=== PATIENT | male | born 1985 | race Caucasian/White ===

== ENCOUNTER 2018-10-21 23:29 | Emergency (ER) | payer MEDICAID ==
[~2018-10-21] VITALS: Ht 177.8 cm; Wt 117.9 kg
--- NOTE | 2018-10-21 23:30 | NUR ---
33 Y/O MALE BIB [facility]. PRESENTS TO ED, C/O ACHING, PRESSURED ABDOMINAL PAIN THAT RADIATES TO THE BACK 10/23. 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 PT DENIES CONSTIPATION. ACTIVE BOWEL SOUNDS ON ALL QUADRANTS. ABD SOFT, NO PAIN ON PALPATION. NO PAIN VOIDING. PT HAS NO MEDICAL HX. ERMD AWARE. WILL CONTINUE TO MONITOR.
--- NOTE | 2018-10-21 23:30 | NUR ---
[facility] TRANSFERRED PT VIA GURNEY TO BED #9
[2018-10-21 23:36] VITALS: BP 168/92
[2018-10-21] MEDS ORDERED: KETOROLAC 30 MG/ML VIAL IM ONE (23:50)
[2018-10-22 00:07] LABS: BASOPHILS # (AUTO) 0.1 K/uL (0.00-0.22); BASOPHILS % (AUTO) 0.8 % (0.0-2.0); EOSINOPHILS # (AUTO) 0.1 K/uL (0-0.4); EOSINOPHILS % (AUTO) 1.5 % (0.0-4.0); HEMATOCRIT 44.5 % (36-52); HEMOGLOBIN 14.9 g/dL (12.0-18.0); LYMPHOCYTES # (AUTO) 1.9 K/uL (2.0-11.5); LYMPHOCYTES % (AUTO) 22.3 % (20.5-51.1); MEAN CORPUSCULAR HEMOGLOBIN 29 pg (27-31); MEAN CORPUSCULAR HGB CONC 34 g/dL (33-37); MEAN CORPUSCULAR VOLUME 86.4 fL (80-94); MONOCYTES # (AUTO) 0.6 K/uL (0.8-1.0); MONOCYTES % (AUTO) 6.7 % (1.7-9.3); NEUTROPHILS % (AUTO) 68.7 % (42.2-75.2); PLATELET COUNT (AUTO) 302 K/uL (140-450); RED BLOOD CELL COUNT(AUTO) 5.15 MIL/uL (4.20-6.10); RED CELL DISTRIBUTION WIDTH 13.6 % (11.6-13.7); WHITE BLOOD COUNT (AUTO) 8.7 K/uL (4.8-10.8)
--- NOTE | 2018-10-22 00:14 | NUR ---
PT TAKEN TO CT
[2018-10-22 00:19] LABS: ANION GAP 12.7 (8-16); CARBON DIOXIDE 26.9 mmol/L (21-32); CREATININE 0.8 mg/dL (0.7-1.3); POTASSIUM 3.6 mmol/L (3.5-5.1)
[2018-10-22 00:24] LABS: ALBUMIN 3.7 g/dL (3.4-5.0)
[2018-10-22] MEDS ORDERED: ONDANSETRON 4 MG ODT PO ONE (01:00)
[2018-10-22 01:22] VITALS: BP 155/89
--- NOTE | 2018-10-22 01:22 | NUR ---
PT DISCHARGE WITH PAPERWORK. RX ZOFRAN AND MOTRIN. EDUCATED PT REGARDING MEDICATIONS AND SIDE EFFECTS. EDUCATED PT REGARDING DISCHARGE DIAGNOSIS. PT VERBALIZED UNDERSTANDING OF TEACHING. TOLD PT TO FOLLOW UP WITH PCP AND WHEN TO RETURN TO ED. PT VSS. ALL QUESTIONS ANSWERED.
== END 2018-10-22 01:22 | disposition home or self-care (01) ==
LOC: MED 23:29
DX: K80.20 Calculus of gallbladder without cholecystitis without obstruction (principal)
CPT/HCPCS: 36415; 74176; 80053; 83690; 85025; 96372; 99284; J1885; Q0162

== ENCOUNTER 2018-10-24 14:12 | Inpatient (IN) | payer MEDICAID ==
[~2018-10-24] VITALS: Ht 177.8 cm; Wt 113.4 kg
[2018-10-24 14:14] VITALS: BP 99/59
--- NOTE | 2018-10-24 14:25 | NUR ---
PT AMB TO BED 11
[2018-10-24] MEDS ORDERED: NACL 0.9% 2,000 ML IV ONE (14:40)
[2018-10-24] MEDS ORDERED: MAGNESIUM CITRATE 300 ML BTL PO ONE (14:40)
--- NOTE | 2018-10-24 14:43 | NUR ---
33 Y/M C/O N/V, GENERALIZED ABDOMINAL PAIN & CONSTIPATED X 5 DAYS. SEEN HERE 10/22/18 LAST BM 10/20/18. PT REPORTED HIS URINE IS DARK AND TEA LIKE COLOR. DENIES DYSURIA. SCLERA IS YELLOW. MED HX: GALL STONE
[2018-10-24 15:05] LABS: BASOPHILS % (AUTO) 0.6 % (0.0-2.0); EOSINOPHILS # (AUTO) 0.2 K/uL (0-0.4); EOSINOPHILS % (AUTO) 2.6 % (0.0-4.0); HEMATOCRIT 44.8 % (36-52); HEMOGLOBIN 15.1 g/dL (12.0-18.0); LYMPHOCYTES # (AUTO) 1.2 K/uL (2.0-11.5); LYMPHOCYTES % (AUTO) 15.3 % (20.5-51.1); MEAN CORPUSCULAR HEMOGLOBIN 29 pg (27-31); MEAN CORPUSCULAR HGB CONC 34 g/dL (33-37); MEAN CORPUSCULAR VOLUME 86.2 fL (80-94); MONOCYTES # (AUTO) 0.6 K/uL (0.8-1.0); MONOCYTES % (AUTO) 8.2 % (1.7-9.3); NEUTROPHILS # (AUTO) 5.7 K/uL (1.8-7.7); NEUTROPHILS % (AUTO) 73.3 % (42.2-75.2); PLATELET COUNT (AUTO) 290 K/uL (140-450); RED CELL DISTRIBUTION WIDTH 13.7 % (11.6-13.7); WHITE BLOOD COUNT (AUTO) 7.8 K/uL (4.8-10.8)
--- NOTE | 2018-10-24 15:08 | NUR ---
bedside ultrasound completed
[2018-10-24 15:10] LABS: APPEARANCE,URINE HAZY (CLEAR); BILIRUBIN,URINE 3+ (NEGATIVE); BLOOD, URINE NEGATIVE (NEGATIVE); COLOR,URINE BROWN (YELLOW); LEUKOCYTE ESTERASE ,URINE NEGATIVE (NEGATIVE); NITRITE, URINE POSITIVE (NEGATIVE); UGLUCOSE NEGATIVE (NEGATIVE)
[2018-10-24 15:17] LABS: ANION GAP 9.1 (8-16); CARBON DIOXIDE 31.9 mmol/L (21-32); CREATININE 0.9 mg/dL (0.7-1.3)
[2018-10-24 15:25] LABS: ALBUMIN 3.6 g/dL (3.4-5.0); TOTAL BILIRUBIN 6.4 mg/dL (0.0-1.0)
[2018-10-24] MEDS ORDERED: LACTULOSE 20 GM/30 ML UDC PO ONE (15:30)
[2018-10-24 15:35] LABS: RBC,URINE 0 /HPF (0-5); WBC,URINE 0-5 /HPF (0-5)
[2018-10-24] MEDS ORDERED: cefTRIAXone 1,000 MG VIAL ONE (15:45)
[2018-10-24] MEDS: DEXT 5% /NACL 0.9% 1,000 ML IV SCH (16:11)
[2018-10-24] MEDS ORDERED: LORazepam 2 MG/ML VIAL IM/IVP PRN (16:15)
[2018-10-24] MEDS ORDERED: ONDANSETRON 4 MG/2 ML VIAL IM/IVP PRN (16:15)
[2018-10-24] MEDS ORDERED: DOCUSATE SODIUM 100 MG GELCAP PO PRN (16:15)
[2018-10-24] MEDS ORDERED: MORPHINE SULFATE 2 MG/ML SYR IVP PRN (16:15)
[2018-10-24] MEDS ORDERED: HYDROcodone/APAP 5/325 MG 1 TAB TAB PO PRN (16:15)
--- NOTE | 2018-10-24 16:24 | NUR ---
X RAY AT BEDSIDE.
[2018-10-24 16:48] LABS: PROTHROMBIN TIME 9.6 secs (10.8-13.4)
[2018-10-24 16:49] LABS: BARBITURATE, URINE NEG. ng/ml (NEG <=200); BENZODIAZEPINE, URINE NEG. ng/mL (NEG <=200); CANNABINOID, URINE POS. ng/mL (NEG <=50); COCAINE, URINE NEG. ng/mL (NEG <=300); OPIATE, URINE NEG. ng/mL (NEG <=2000); PHENCYCLIDINE SCREEN,URINE NEG. ng/mL (NEG <=25)
[2018-10-24 17:00] LABS: MAGNESIUM 2.1 mg/dL (1.8-2.4); PHOSPHORUS 3.1 mg/dL (2.5-4.9); THYROID STIMULATING HORMONE 1.95 uIU/mL (0.34-3.74)
--- NOTE | 2018-10-24 17:00 | NUR ---
RECEIVED REPORT FROM ER NURSE JENNIFER. PATIENT CAME TO UNIT FEELING NAUSEOUS AND VOMITED X1. MADE AWARE. PATIENT IS ON ROOM AIR. IV TO RIGHT AC 18G WITH NORMAL SALINE INFUSING. PATIENT IS CURRENTLY NPO EXCEPT MEDS. A&O X4. IS AT BEDSIDE. WILL REVIEW MEDICATION LIST AND ADMINSTER NEEDED. ADMIT VITAL SIGNS: BP 164/100, 98% RA, 79 NM, 98.2 T.
--- NOTE | 2018-10-24 17:03 | NUR ---
Note keena in ED - 10/24/18 at 1704 by MARIA ESTHER Patient will be admitted to care of [facility]. Admited to Med/Surg. Will go to room 125 B. Belongings list completed. Report to .
--- NOTE | 2018-10-24 17:04 | NUR ---
Patient will be admitted to care of [facility]. Admited to Med/Surg. Will go to room 125 B. Belongings list completed. Report to RAHEEL BOSTON.
--- NOTE | 2018-10-24 17:25 | NUR ---
ENDORSED PATIENT TO ELECTRICAL AND INSTRUMENTATION MANAGER NURSE. LATEST VITAL SIGNS WNL. PATIENT IS AWAKE AND ALERT AND IS AT BEDSIDE
[2018-10-24] MEDS ORDERED: BISACODYL 10 MG SUPP RC ONE (17:50)
[2018-10-24] MEDS ORDERED: LIDOCAINE VISCOUS 2% 20 ML UDC PO ONE (18:15)
[2018-10-24] MEDS ORDERED: ALUMINUM HYD/MAG/SIMETHICONE 30 ML UDC PO ONE (18:15)
[2018-10-24] MEDS ORDERED: DICYCLOMINE HCL LIQUID 10 MG/5 ML UDC PO ONE (18:15)
[2018-10-24 18:24] LABS: ALBUMIN 3.6 g/dL (3.4-5.0); BILIRUBIN,DIRECT 4.7 mg/dL (0.0-0.3); TOTAL BILIRUBIN 6.5 mg/dL (0.0-1.0)
[2018-10-24] MEDS: PANTOPRAZOLE 40 MG INJ VIAL IVP SCH (18:36)
[2018-10-24] MEDS ORDERED: MORPHINE SULFATE 2 MG/ML SYR ONE (18:45)
[2018-10-24] MEDS ORDERED: ONDANSETRON 4 MG/2 ML VIAL ONE (18:45)
[2018-10-24] MEDS: LISINOPRIL 5 MG TAB PO SCH (18:48)
--- NOTE | 2018-10-24 19:26 | NUR ---
RECEIVED BEDSIDE REPORT FROM VIDAL PICKERING. A/O X4 PERSON PLACE TIME AND EVENT. DISCUSSED PLAN OF CARE. VERBALIZED UNDERSTANDING. MAKES NEEDS KNOWN. ROOM AIR. NO SIGNS OF RESP DISTRESS. STD PRECAUTIONS. AMBULATORY. STEADY GAIT. SKIN IS INTACT. RAC 18G. PATENT AND INTACT. BED IN LOWEST POSITION. CALL LIGHT WITHIN REACH. WILL CONTINUE TO MONITOR. FAMILY AT BEDSIDE.
[2018-10-24] MEDS: DOCUSATE SODIUM 100 MG GELCAP PO SCH (21:00)
[2018-10-24] MEDS ORDERED: SODIUM PHOSPHATE 118 ML ENEM RC ONE (21:00)
--- NOTE | 2018-10-24 21:00 | NUR ---
PT REFUSED 2100 SCHEDULED MEDS BOO AND NICOLE LINDO. STATES HE IS CONSTANTLY IN THE RESTROOM SINCE SHIFT CHANGE. SAYS HE WILL ASK FOR IT LATER IF HE NEEDS IT. WILL CONTINUE TO MONITOR.
[2018-10-24] MEDS: METOPROLOL 25 MG TAB PO SCH (21:43)
[2018-10-24] MEDS ORDERED: HYDROcodone/APAP 5/325 MG 1 TAB TAB ONE (22:01)
--- NOTE | 2018-10-24 22:57 | NUR ---
PT RESTING IN BED NO SIGNS OF DISTRESS. EVEN UNLABORED BREATHING. WILL CONTINUE TO MONITOR. CALL LIGHT WITHIN REACH.
[2018-10-25] VITALS: BP 145/88
--- NOTE | 2018-10-25 01:46 | NUR ---
PT IS SLEEPING IN BED NO SIGNS OF RESP DISTRESS. EASILY AROUSABLE. EVEN UNLABORED CHEST RISE. CALL LIGHT WITHIN REACH. WILL CONTINUE TO MONITOR.
--- NOTE | 2018-10-25 03:45 | NUR ---
PT IS SLEEPING WITH NO SIGNS OF DISTRESS. AMBULATED TO BATHROOM WITH STEADY GAIT. BACK IN BED. ABLE TO MAKE NEEDS KNOWN. CALL LIGHT WITHIN REACH.
[2018-10-25] MEDS: DEXT 5% /NACL 0.9% 1,000 ML IV SCH ×3 (04:56→21:43)
--- NOTE | 2018-10-25 05:10 | NUR ---
STILL AT BEDSIDE. NO SIGNS OF DISTRESS. CALL LIGHT WITHIN REACH. WILL CONTINUE TO MONITOR.
--- NOTE | 2018-10-25 06:23 | NUR ---
WILL ENDORSE PT TO DAYSHIFT RN FOR CONTINUITY OF CARE. PT IS IN STABLE CONDITION. BED IN LOWEST POSITION. CALL LIGHT WITHIN REACH. NO SIGNS OF DISTRESS.
--- NOTE | 2018-10-25 06:47 | NUR ---
X RAY AT BEDSIDE.
[2018-10-25 07:19] LABS: BASOPHILS % (AUTO) 0.6 % (0.0-2.0); EOSINOPHILS # (AUTO) 0.3 K/uL (0-0.4); EOSINOPHILS % (AUTO) 3.6 % (0.0-4.0); HEMATOCRIT 40.9 % (36-52); LYMPHOCYTES # (AUTO) 1.9 K/uL (2.0-11.5); LYMPHOCYTES % (AUTO) 25.1 % (20.5-51.1); MEAN CORPUSCULAR HEMOGLOBIN 29 pg (27-31); MEAN CORPUSCULAR HGB CONC 34 g/dL (33-37); MEAN CORPUSCULAR VOLUME 86.3 fL (80-94); MONOCYTES # (AUTO) 0.7 K/uL (0.8-1.0); MONOCYTES % (AUTO) 8.9 % (1.7-9.3); NEUTROPHILS # (AUTO) 4.7 K/uL (1.8-7.7); NEUTROPHILS % (AUTO) 61.8 % (42.2-75.2); PLATELET COUNT (AUTO) 294 K/uL (140-450); RED BLOOD CELL COUNT(AUTO) 4.74 MIL/uL (4.20-6.10); RED CELL DISTRIBUTION WIDTH 13.8 % (11.6-13.7); WHITE BLOOD COUNT (AUTO) 7.6 K/uL (4.8-10.8)
--- NOTE | 2018-10-25 07:28 | NUR ---
RECEIVED REPORT FROM JOURNEYMAN OPERATOR ASSISTANT RN FOR CONTINUITY OF CARE. PT IN STABLE CONDITION AT THIS TIME.
[2018-10-25 07:40] LABS: ANION GAP 13.2 (8-16); CARBON DIOXIDE 26.3 mmol/L (21-32); CREATININE 0.8 mg/dL (0.7-1.3); POTASSIUM 3.5 mmol/L (3.5-5.1)
--- NOTE | 2018-10-25 07:53 | NUR ---
PATIENT HAS BEEN SCREENED AND CATEGORIZED HIGH NUTRITION RISK. PATIENT WILL BE SEEN WITHIN 1-2 DAYS OF ADMISSION. 10/25/18-10/26/[address]
[2018-10-25 08:00] VITALS: BP 138/87
[2018-10-25] MEDS: chlordiazePOXIDE 25 MG CAP PO SCH ×3 (09:00→17:00)
--- NOTE | 2018-10-25 09:48 | NUR ---
ADMINISTERED MORNING MEDS TO PT. PT TOLERATED THEM WELL. WILL CONTINUE TO ROUND FREQUENTLY ON PT. BED IN LOW POSITION, CALL LIGHT WITHIN REACH.
[2018-10-25] MEDS: PANTOPRAZOLE 40 MG INJ VIAL IVP SCH (10:30)
[2018-10-25] MEDS: LACTULOSE 20 GM/30 ML UDC PO SCH (10:31)
[2018-10-25] MEDS: METOPROLOL 25 MG TAB PO SCH ×2 (10:31→21:15)
[2018-10-25] MEDS: LISINOPRIL 5 MG TAB PO SCH (10:32)
[2018-10-25] MEDS: THIAMINE 200 MG/2 ML VIAL IM SCH (10:32)
[2018-10-25] MEDS: MULTIVITAMIN 1 TAB PO SCH (10:32)
[2018-10-25] MEDS: DOCUSATE SODIUM 100 MG GELCAP PO SCH ×2 (10:32→21:14)
[2018-10-25] MEDS: FOLIC ACID 1 MG TAB PO SCH (10:33)
--- NOTE | 2018-10-25 11:29 | NUR ---
PT RESTING IN BED. PAIN REPORTED AND WILL MEDICATE. ALL OTHER NEEDS MET AT THIS TIME.
--- NOTE | 2018-10-25 13:39 | NUR ---
PT SLEEPING IN BED WITH AT BEDSIDE. ALL NEEDS CURRENTLY MET. WILL CONTINUE TO ROUND FREQUENTLY ON PT
[2018-10-25] MEDS: SENNA 8.6 MG TAB PO SCH ×2 (14:42→17:00)
--- NOTE | 2018-10-25 15:47 | NUR ---
PT SLEEPING IN BED. WILL CONTINUE TO ROUND FREQUENTLY ON PT. BED IN LOW POSITION, CALL LIGHT WITHIN REACH
[2018-10-25 16:00] VITALS: BP 127/81
--- NOTE | 2018-10-25 17:40 | NUR ---
PATIENT RESTING IN BED EATING DINNER. ALL NEEDS CURRENTLY MET. WILL CONTINUE TO ROUND FREQUENTLY ON PT.
--- NOTE | 2018-10-25 19:51 | NUR ---
RECIEVED PT AAOX4, NID , IV SITE INTACT AND PATENT , COMPLAINING OF ACID REFLUX , PLAN OF CARE DISCUSSED AND VERBALIZE UNDERSTANDING , RELATIVE AT BEDSIDE , CALL LIGHT WITHIN REACH . WILL REFER TO DR. BRIGGS FOR ACID REFLUX AND WILL MEDICATE AND WILL CONT. TO MONITOR.
--- NOTE | 2018-10-25 19:51 | NUR ---
ENDORSED PT TO COUPON COLLECTION CLERK FOR CONTINUITY OF CARE. PT IN STABLE CONDITION AT THIS TIME.
[2018-10-25] MEDS ORDERED: FAMOTIDINE 20 MG/2 ML VIAL IV SCH (21:00)
[2018-10-25] MEDS ORDERED: DICYCLOMINE HCL LIQUID 10 MG/5 ML UDC PO SCH (21:00)
[2018-10-25] MEDS ORDERED: LIDOCAINE VISCOUS 2% 20 ML UDC PO SCH (21:00)
[2018-10-25] MEDS ORDERED: ALUMINUM HYD/MAG/SIMETHICONE 30 ML UDC PO SCH (21:00)
[2018-10-25] MEDS ORDERED: ACETAMINOPHEN 325 MG TAB ONE (21:20)
--- NOTE | 2018-10-25 21:30 | NUR ---
REFER TO DR BRIGGS - MADE NEW ORDER AND CARRIED OUT. WILL CONT. TO MONITOR . CALL LIGHT WITHIN REACH.
[2018-10-25] MEDS: ACETAMINOPHEN 325 MG TAB PO PRN ×2 (21:35→21:37)
--- NOTE | 2018-10-25 21:48 | NUR ---
ON REGULAR DIET ORDERED.
--- NOTE | 2018-10-25 22:30 | NUR ---
I BROUGHT SANDWICH TO THE PT. BUT PT. AND PT'S RELATIVE SLEEPING.CALL LIGHT WITHIN REACH.
--- NOTE | 2018-10-26 | NUR ---
MADE ROUNDS . PT RESP. EVEN AND UNLABORED . CALL LIGHT WITHIN REACH.WILL CONT. TO MONITOR.
[2018-10-26 00:17] VITALS: BP 133/80
--- NOTE | 2018-10-26 02:00 | NUR ---
SLEEPING.CALL LIGHT WITHIN REACH
--- NOTE | 2018-10-26 04:00 | NUR ---
MADE ROUNDS . RESP. EVEN AND UNLABORED , CALL LIGHT WITHIN REACH.
--- NOTE | 2018-10-26 06:00 | NUR ---
PHARMACIST FROM [facility] CALLED TO VERIFY THE ORDER OF DR. BRIGGS ABOUT WHICH ONE BET. THE FAMOTIDINE AND PANTOPRAZOL . VERIFIED TO DR Gill BRIGGS HE SAID BOTH.
[2018-10-26 06:29] LABS: ANION GAP 12.4 (8-16); CARBON DIOXIDE 26.1 mmol/L (21-32); CREATININE 0.9 mg/dL (0.7-1.3); POTASSIUM 3.5 mmol/L (3.5-5.1)
[2018-10-26 06:48] LABS: BASOPHILS % (AUTO) 0.7 % (0.0-2.0); EOSINOPHILS # (AUTO) 0.3 K/uL (0-0.4); EOSINOPHILS % (AUTO) 4.9 % (0.0-4.0); HEMATOCRIT 41.3 % (36-52); HEMOGLOBIN 13.8 g/dL (12.0-18.0); LYMPHOCYTES # (AUTO) 2.1 K/uL (2.0-11.5); LYMPHOCYTES % (AUTO) 33.7 % (20.5-51.1); MEAN CORPUSCULAR HEMOGLOBIN 29 pg (27-31); MEAN CORPUSCULAR HGB CONC 33 g/dL (33-37); MEAN CORPUSCULAR VOLUME 87.4 fL (80-94); MONOCYTES # (AUTO) 0.6 K/uL (0.8-1.0); MONOCYTES % (AUTO) 9.1 % (1.7-9.3); NEUTROPHILS # (AUTO) 3.2 K/uL (1.8-7.7); NEUTROPHILS % (AUTO) 51.6 % (42.2-75.2); PLATELET COUNT (AUTO) 289 K/uL (140-450); RED BLOOD CELL COUNT(AUTO) 4.72 MIL/uL (4.20-6.10); RED CELL DISTRIBUTION WIDTH 13.8 % (11.6-13.7); WHITE BLOOD COUNT (AUTO) 6.2 K/uL (4.8-10.8)
--- NOTE | 2018-10-26 07:29 | NUR ---
ENDORSED TO AM SHIFT FOR CONT. OF CARE WITH STABLE CONDITION.
--- NOTE | 2018-10-26 07:30 | NUR ---
RECEIVED BEDSIDE REPORT FROM SUPERVISOR PRODUCTION NURSE. PT IS ASLEEP, VISITOR IS SLEEPING AT BEDSIDE. NO S/S OF ANY ACUTE DISTRESS NOTED. PT IS ON ROOM AIR, SKIN IS INTACT. IV SITE IS NOTED IN THE R AC 18 G, INFUSING D5NS 80 ML/HR. CALL LIGHT IS WITHIN REACH, WILL CONTINUE TO MONITOR.
[2018-10-26 07:36] LABS: MAGNESIUM 2.3 mg/dL (1.8-2.4); PHOSPHORUS 3.5 mg/dL (2.5-4.9)
[2018-10-26 07:42] LABS: HEPATITIS A ANTIBODY IGM Negative (Negative); HEPATITIS B CORE AB TOTAL Negative (Negative); HEPATITIS B SURFACE ANTIBODY Reactive (.); HEPATITIS B SURFACE ANTIGEN Negative (Negative)
[2018-10-26 08:00] VITALS: BP 135/85
[2018-10-26] MEDS ORDERED: MULT-405 PO (08:06)
[2018-10-26] MEDS ORDERED: FOLI1TAB90 PO (08:06)
[2018-10-26] MEDS ORDERED: SENN-74 PO (08:06)
[2018-10-26] MEDS ORDERED: THIA500T9 PO (08:10)
[2018-10-26] MEDS ORDERED: METO25TA PO (08:24)
[2018-10-26] MEDS ORDERED: LISI5TAB18 PO (08:24)
[2018-10-26] MEDS: chlordiazePOXIDE 25 MG CAP PO SCH ×2 (09:00→09:35)
[2018-10-26] MEDS: THIAMINE 200 MG/2 ML VIAL IM SCH (09:00)
--- NOTE | 2018-10-26 09:32 | NUR ---
Rug Dry Room Attendant Note: Late entry for 10/25/18: Assessment/Discharge Plan: I met with patient and patient's significant other Rosa Elena Vazquez at bedside. Patient alert and oriented x4. I introduced myself to them and explained my role as a manager medical device. They verbalized understanding. Patient lives at home with Rosa Elena and plans to return home upon discharge. He uses [employer] for transportation. He does not have a pcp at this time. He admitted having an unhealthy lifestyle including non-compliance with medical care and drinking alcohol heavily. I emphasized to him the importance of following up with a physician post discharge and regularly. He verbalized understanding. I provided him with a list of low cost clinics. He reported he would like to be healthier. He stated he is planning to follow up with a physician and stop drinking. I commended him for this. He told me he is capable of stop drinking on his own but did accept the list of alcohol/substance abuse treatment programs I provided him. He is planning to enroll into [facility]. He is also considering scheduling an appointment to see a therapist for his mental well being. He denied SI and HI. I explained to him to ask his future pcp once he enrolls into [facility] for a referral to see a therapist. He verbalized understanding. He does not use any DME and is independent with ADLs. He does not have an existing Advance Directive. I provided him with a blank Advance Directive form and provided him with education on Advance Directive. He does not have any questions nor concerns at this time. Rug Dry Room Attendant and/or Petrologist will follow up as needed.
[2018-10-26] MEDS: LISINOPRIL 5 MG TAB PO SCH (09:34)
[2018-10-26] MEDS: DOCUSATE SODIUM 100 MG GELCAP PO SCH (09:34)
[2018-10-26] MEDS: METOPROLOL 25 MG TAB PO SCH (09:34)
[2018-10-26] MEDS: LACTULOSE 20 GM/30 ML UDC PO SCH (09:34)
[2018-10-26] MEDS: FOLIC ACID 1 MG TAB PO SCH (09:34)
[2018-10-26] MEDS: SENNA 8.6 MG TAB PO SCH (09:35)
[2018-10-26] MEDS: PANTOPRAZOLE 40 MG INJ VIAL IVP SCH (09:35)
[2018-10-26] MEDS: MULTIVITAMIN 1 TAB PO SCH (09:35)
--- NOTE | 2018-10-26 09:45 | NUR ---
AM MEDS ADMINISTERED, PT REFUSED LIBRIUM, STATED THAT HE DOES NOT TAKE THIS MEDICATION. PT ALSO REFUSED THE VITAMIN B INJECTION.
--- NOTE | 2018-10-26 11:19 | NUR ---
PT IS HUNGRY, ASKED FOR A SANDWICH AND A JUICE. WILL BEGIN PT'S DISCHARGE AFTER HE IS FINISHED EATING.
--- NOTE | 2018-10-26 11:35 | NUR ---
PT HAS DISCHARGED. PT WAS GIVEN DC INSTRUCTIONS AND EXPLAINED ABOUT PRESCRIPTIONS AND FOLLOW UP APPOINTMENT. PT VERBALIZED UNDERSTANDING OF DC TEACHING. BUS PASS PROVIDED UPON REQUEST. IV SITE AND WRIST BAND REMOVED. PT LEFT WITH ALL HIS BELONGINGS IN STABLE CONDITION.
== END 2018-10-26 11:35 | disposition home or self-care (01) ==
LOC: MED 14:12 → MMU 16:32 → MED 16:50
PROVIDERS: ADMIT General Practice; ATTEND General Practice
DX: K80.10 Calculus of gallbladder with chronic cholecystitis without obstruction (principal); F10.99 Alcohol use, unspecified with unspecified alcohol-induced disorder; K70.9 Alcoholic liver disease, unspecified; E66.9 Obesity, unspecified; N39.0 Urinary tract infection, site not specified; Z68.35 Body mass index [BMI] 35.0-35.9, adult; Z71.3 Dietary counseling and surveillance; F17.200 Nicotine dependence, unspecified, uncomplicated; I25.2 Old myocardial infarction; K59.00 Constipation, unspecified; F12.90 Cannabis use, unspecified, uncomplicated; F19.10 Other psychoactive substance abuse, uncomplicated; K44.9 Diaphragmatic hernia without obstruction or gangrene; I10 Essential (primary) hypertension; F15.10 Other stimulant abuse, uncomplicated; F14.10 Cocaine abuse, uncomplicated
CPT/HCPCS: 36415; 71045; 74018; 74250; 76705; 80048; 80053; 80076; 80305; 81001; 82140; 82150; 83036; 83605; 83690; 83735; 84100; 84443; 85025; 85610; 85730; 86704; 86706; 86708; 86709; 86803; 87040; 87081; 87086; 87340; 93005; 99285; C9113; G0482; J0696; J2270; J2405; J3411; J3490; J7042; J7060; Q0092